=== PATIENT | female | born 1950 | race Caucasian/White ===

== ENCOUNTER 2018-09-10 07:00 | Observation (INO) | payer OTHER ==
[2018-09-09 16:12] VITALS: BP 175/105
[2018-09-09 16:20] LABS: BASOPHILS % (AUTO) 0.7 % (0.0-5.0); EOSINOPHILS % (AUTO) 1.6 % (0.0-8.0); HEMATOCRIT 44.1 % (36-48); MEAN CORPUSCULAR HEMOGLOBIN 34.6 pg (27.0-33.0); MEAN CORPUSCULAR HGB CONC 34.3 g/dL (32.0-36.0); MONOCYTES % (AUTO) 5.9 % (3.0-13.0); NEUTROPHILS % (AUTO) 74.8 % (40.0-77.0); NUCLEATED RED BLOOD CELLS 0.1 % (0.0-0.19); PLATELET COUNT (AUTO) 379 K/uL (130-400); RED BLOOD CELL COUNT(AUTO) 4.36 MIL/uL (4.00-5.50); WHITE BLOOD COUNT (AUTO) 7.7 K/uL (4.8-10.8)
[2018-09-09 16:23] LABS: APPEARANCE,URINE Clear (CLEAR); BILIRUBIN,URINE Negative (NEGATIVE); COLOR,URINE Yellow (YELLOW); GLUCOSE, URINE (UA) Negative (NEGATIVE); KETONES,URINE Negative (NEGATIVE); LEUKOCYTE ESTERASE ,URINE Negative (NEGATIVE); NITRATE,URINE Negative (NEGATIVE); OCCULT BLOOD,URINE Negative (NEGATIVE); PROTEIN,URINE Negative (NEGATIVE); UROBILINOGEN,URINE 0.2 mg/dL (0.2-1.0)
[2018-09-09 16:26] LABS: CREATININE 0.7 mg/dL (0.5-1.5); POTASSIUM 4.5 mmol/L (3.5-5.1)
[2018-09-09 16:30] LABS: INR 0.95 (0.85-1.15); PARTIAL THROMBOPLASTIN TIME 26.7 SEC (26.3-35.5)
--- NOTE | 2018-09-09 17:03 | NUR ---
DR DUMONT NOTIFIED OF ELEVATED BP 175/105 LEFT, 175/108 RIGHT, HE REVIEWED EKG, ORDERS FOR PATIENT TO NOTIFY HER PCP OK TO PROCEED WITH SURGERY
--- NOTE | 2018-09-09 17:04 | NUR ---
PATIENT INFORMED TO NOTIFY HER PRIMARY DOCTOR OF ELEVATED BP, SHE VERBALIZED HER UNDERSTANDING
[~2018-09-10] VITALS: Ht 162.6 cm; Wt 79.3 kg
[2018-09-10] VITALS (21 sets, daily range): BP systolic 118–173; BP diastolic 70–103
[~2018-09-10 07:00] MED LIST: CARI350T26 PO; CHOL4PAC21 PO; GABA-529 PO; LOSA100T58 PO; SPIR100T5 PO; TRAM50TA4 PO
[2018-09-10] MEDS: CEFAZOLIN SODIUM 1 GM VIAL IVP SCH ×3 (08:00→19:42)
[2018-09-10] MEDS ORDERED: LACTATED RINGERS 1000ML 1,000 ML IV ONE (08:11)
[2018-09-10] MEDS ORDERED: KETOROLAC TROMETHAMINE 15MG/ML ONE (08:38)
[2018-09-10] MEDS ORDERED: ACETAMINOPHEN EXTRA STRENGTH 500 MG TABLET ONE (08:38)
[2018-09-10] MEDS ORDERED: METOCLOPRAMIDE 10 MG/2 ML VIAL ONE (08:38)
[2018-09-10] MEDS ORDERED: CELECOXIB 200 MG CAP ONE (08:38)
[2018-09-10] MEDS ORDERED: OXYCODONE HCL 10 MG TAB.SR.12H PO ONE (08:38)
[2018-09-10] MEDS ORDERED: TRANEXAMIC ACID 1000MG/10ML IV ONE (09:28)
[2018-09-10] MEDS ORDERED: CEFAZOLIN SODIUM 1 GM VIAL ONE (09:28)
[2018-09-10] MEDS ORDERED: FENTANYL CITRATE PF 50 MCG/1 ML 2ML VIAL ONE ×2 (10:32→12:02)
[2018-09-10] MEDS ORDERED: MIDAZOLAM HCL 1 MG/ML 2ML VIAL ONE (10:32)
[2018-09-10] MEDS ORDERED: PROPOFOL 10 MG/ML 20ML VIAL IV ONE ×2 (10:33→12:56)
[2018-09-10] MEDS ORDERED: ROCURONIUM 10MG/1ML SYR 10 MG/ML ML ONE ×2 (10:33→11:12)
[2018-09-10] MEDS ORDERED: ONDANSETRON HCL 4 MG/2 ML VIAL ONE (10:36)
[2018-09-10] MEDS ORDERED: NEOSTIGMINE 5MG/5ML SYR IV ONE (12:42)
[2018-09-10] MEDS ORDERED: GLYCOPYRROLATE 1 MG/5 ML SYRINGE ONE (12:42)
[2018-09-10] MEDS ORDERED: CALCIUM CARBONATE 500 MG TABLET PO PRN (12:45)
[2018-09-10] MEDS ORDERED: DiphenhydrAMINE HCL 50 MG/ML VIAL IVP PRN (12:45)
[2018-09-10] MEDS ORDERED: OXYCODONE HCL 5 MG TAB PO PRN (12:45)
[2018-09-10] MEDS ORDERED: TEMAZEPAM 15 MG CAPSULE PO PRN (12:45)
[2018-09-10] MEDS ORDERED: FERROUS FUMARATE 324 MG TABLET PO PRN (12:45)
[2018-09-10] MEDS: ACETAMINOPHEN EXTRA STRENGTH 500 MG TABLET PO SCH ×2 (12:45→19:42)
[2018-09-10] MEDS ORDERED: TRAMADOL HCL 50 MG TABLET PO PRN (12:45)
[2018-09-10] MEDS ORDERED: POTASSIUM CHLORIDE 20MEQ/100ML 100 ML IV PRN (12:45)
[2018-09-10] MEDS ORDERED: ONDANSETRON HCL 4 MG/2 ML VIAL IVP PRN (12:45)
[2018-09-10] MEDS ORDERED: LIDOCAINE HCL-MPF 1% 2ML VIAL IVP PRN (12:45)
[2018-09-10] MEDS ORDERED: POTASSIUM CHLORIDE 20 MEQ ERTAB PO PRN (12:45)
[2018-09-10] MEDS ORDERED: POTASSIUM CHLORIDE 10% ELIXIR 20 MEQ/15 ML UDCUP PO PRN (12:45)
--- NOTE | 2018-09-10 13:30 | NUR ---
TRANEXAMIC ACID 1GM IVPB GIVEN IN PACU. Addendum: 09/10/18 at 1335 by NUNU SKINNER RN RN Amended: Links added.
[2018-09-10] MEDS ORDERED: MEPERIDINE-PF 25 MG/ML SYG ONE ×2 (13:36→13:44)
[2018-09-10] MEDS ORDERED: CARISOPRODOL 350 MG TABLET PO PRN (15:45)
[2018-09-10] MEDS: SODIUM CHLORIDE 0.9% 1000ML 1,000 ML IV SCH ×2 (16:05→22:24)
--- NOTE | 2018-09-10 16:05 | NUR ---
INITIAL MET W PT AND SPOUSE AT BEDSIDE, PT POST OP TKA, AAOX3, DENYING PAIN, VERY ALERT, STATES THIS IS SECOND KNEE, KNOWS WHAT TO EXPECT, HAS STD WALKER WITH TWO BACK WHEELS AND COMMODE REQUESTS [facility] AGAIN, JAIME /SIMA SIGNED AND SENT . [facility] IS HOME WHEN DR. QUIROZ RELEASES Addendum: 09/11/18 at 1710 by POWER FOWLER RN CM Amended: Links added.
[2018-09-10] MEDS ORDERED: CEFAZOLIN SODIUM 1 GM VIAL IVP SCH (17:45)
[2018-09-10] MEDS: ASPIRIN 325 MG TABLET PO SCH (19:41)
[2018-09-10] MEDS: OXYCODONE HCL 5 MG TAB PO PRN (19:41)
[2018-09-10] MEDS: CELECOXIB 200 MG CAP PO SCH (19:42)
[2018-09-10] MEDS: FAMOTIDINE 20MG TAB 20 MG TAB PO SCH (19:43)
[2018-09-10] MEDS: CHOLESTYRAMINE PACKET 4 GM PACKET PO SCH (19:43)
[2018-09-10] MEDS ORDERED: GABAPENTIN 100 MG CAPSULE PO SCH (21:00)
[2018-09-10] MEDS: KETOROLAC TROMETHAMINE 15MG/ML IV PRN (22:52)
[2018-09-11] MEDS: OXYCODONE HCL 5 MG TAB PO PRN ×4 (01:14→18:08)
[2018-09-11 03:50] VITALS: BP 127/69
[2018-09-11] MEDS: CEFAZOLIN SODIUM 1 GM VIAL IVP SCH (04:06)
[2018-09-11] MEDS: ACETAMINOPHEN EXTRA STRENGTH 500 MG TABLET PO SCH ×2 (04:06→12:39)
[2018-09-11] MEDS: KETOROLAC TROMETHAMINE 15MG/ML IV PRN ×2 (05:39→13:43)
[2018-09-11 06:05] LABS: HEMATOCRIT 33.5 % (36-48); MEAN CORPUSCULAR HEMOGLOBIN 35.2 pg (27.0-33.0); MEAN CORPUSCULAR HGB CONC 34.8 g/dL (32.0-36.0); MEAN CORPUSCULAR VOLUME 101.2 fL (79-99); PLATELET COUNT (AUTO) 271 K/uL (130-400); RED BLOOD CELL COUNT(AUTO) 3.31 MIL/uL (4.00-5.50); RED CELL DISTRIBUTION WIDTH 13.1 % (11.0-15.5); WHITE BLOOD COUNT (AUTO) 7.9 K/uL (4.8-10.8)
[2018-09-11 06:23] LABS: CREATININE 0.8 mg/dL (0.5-1.5); POTASSIUM 4.2 mmol/L (3.5-5.1)
[2018-09-11 07:30] VITALS: BP 155/87
[2018-09-11] MEDS: SODIUM CHLORIDE 0.9% 1000ML 1,000 ML IV SCH (08:24)
[2018-09-11] MEDS: CHOLESTYRAMINE PACKET 4 GM PACKET PO SCH (08:32)
[2018-09-11] MEDS: ASPIRIN 325 MG TABLET PO SCH (08:33)
[2018-09-11] MEDS: CELECOXIB 200 MG CAP PO SCH (08:33)
[2018-09-11] MEDS: FAMOTIDINE 20MG TAB 20 MG TAB PO SCH (08:34)
[2018-09-11] MEDS ORDERED: POLYETHYLENE GLYCOL 3350 17 GM POWD.PACK PO SCH (09:00)
[2018-09-11] MEDS ORDERED: SPIRONOLACTONE 25 MG TAB PO SCH (09:00)
[2018-09-11] MEDS ORDERED: GABAPENTIN 100 MG CAPSULE PO SCH (09:00)
[2018-09-11] MEDS ORDERED: LOSARTAN 100 MG TABLET PO SCH (09:00)
[2018-09-11 11:10] VITALS: BP 132/77
--- NOTE | 2018-09-11 15:00 | NUR ---
PT ACCEPTED AT [facility] Addendum: 09/11/18 at 1711 by POWER FOWLER RN CM Amended: Links added.
[2018-09-11 16:00] VITALS: BP 134/75
[2018-09-11] MEDS ORDERED: HYDR-4457 PO (18:05)
[2018-09-11] MEDS ORDERED: ASPI-1012 PO (18:05)
[2018-09-11 19:30] VITALS: BP 147/89
--- NOTE | 2018-09-11 19:55 | NUR ---
DISCHARGE DISCHARGE HOME VIA W/C ACCOMPANIED BY PATIENTS
[2018-09-13] MEDS ORDERED: BISACODYL 10 MG SUPP.RECT RC PRN (12:45)
== END 2018-09-11 19:55 | disposition home health service (06) ==
LOC: DAH 07:00 → DAHIP 07:01 → DAH 07:01 → 4AH 14:21
PROVIDERS: ADMIT Orthopaedic Surgery; ATTEND Orthopaedic Surgery
DX: M17.11 Unilateral primary osteoarthritis, right knee (principal); M19.90 Unspecified osteoarthritis, unspecified site; M85.80 Other specified disorders of bone density and structure, unspecified site; I10 Essential (primary) hypertension; E78.5 Hyperlipidemia, unspecified; Z98.41 Cataract extraction status, right eye; Z98.42 Cataract extraction status, left eye; Z90.89 Acquired absence of other organs; Z98.51 Tubal ligation status; Z82.49 Family history of ischemic heart disease and other diseases of the circulatory system; Z79.01 Long term (current) use of anticoagulants; Z79.899 Other long term (current) drug therapy
CPT/HCPCS: 27447; 36415 ×2; 80048 ×2; 81003; 85025; 85027; 85610; 85730; 87641; 88304; 88311; 93005; 96374; 96375; 96376; 97039; 97116 ×3; 97161; 97530 ×2; A4600; A4649 ×6; A4930 ×3; A6219; C1763; C1776; G0168; G0378 ×31; G8978; G8979; G8980; G8981; G8982; G8983; J0690 ×4; J1885 ×4; J2175 ×2; J2250; J2405; J2704 ×2; J2710; J2765; J3010 ×2; J3490 ×2; J7120 ×2

== ENCOUNTER → 2022-03-16 | Outpatient (CLI) | payer OTHER ==
[~2022-03-16] MED LIST changes: +ASPI-1012 PO; -CHOL4PAC21 PO; +CHOL4POW4 PO; +HYDR-4457 PO
[2022-03-16 15:31] LABS: CREATININE 0.7 mg/dL (0.5-1.5); CRP QUANTITATIVE 118.1 mg/L (0.00-9.0)
== END | disposition home or self-care (01) ==
LOC: LAB 14:07
PROVIDERS: ATTEND Internal Medicine
DX: I48.0 Paroxysmal atrial fibrillation (principal); I31.4 Cardiac tamponade; J90 Pleural effusion, not elsewhere classified
CPT/HCPCS: 36415; 80048; 83880; 86140

== ENCOUNTER → 2022-06-19 | Outpatient (CLI) | payer OTHER ==
[~2022-06-19] MED LIST changes: -LOSA100T58 PO; +LOSA100T59 PO
== END | disposition home or self-care (01) ==
LOC: SHCH 10:18
PROVIDERS: ATTEND Internal Medicine
DX: I11.9 Hypertensive heart disease without heart failure (principal); E78.5 Hyperlipidemia, unspecified; I31.4 Cardiac tamponade
CPT/HCPCS: 93306

== ENCOUNTER → 2024-06-15 | Outpatient (CLI) | payer OTHER ==
[~2024-06-15] MED LIST changes: -CARI350T26 PO; +[UNRECOGNIZED DRUG - CODE] PO
--- NOTE | 2024-06-15 13:06 | HMCIMG ---
CT CHEST W/O CONTRAST HISTORY: Pectus excavatum COMPARISON: None TECHNIQUE: Multiple sequential axial images of the chest were obtained from the thoracic inlet through upper abdomen. Patient was not given contrast through intravenous route. FINDINGS: Pectus deformity of the chest for is noted. With depression is approximately 4.1 cm and . There is no evidence of pulmonary nodule or parenchymal disease. No pleural effusion or pericardial effusion is seen. There is no evidence of pneumothorax. There are normal size mediastinal and hilar lymph nodes. The heart is not enlarged. Degenerative changes of the thoracolumbar spine are present. There is no evidence of adrenal nodule. IMPRESSION: 1. No evidence of pulmonary nodule or effusion is seen. Pectus excavatum CT was performed with one or more following dose reduction techniques: automated exposure control, adjustment of the mA and kv according to patient's size, or use of a iterative reconstruction technique.
== END | disposition home or self-care (01) ==
LOC: RAH 11:17
PROVIDERS: ATTEND Family Medicine
DX: Q67.6 Pectus excavatum (principal); R07.81 Pleurodynia; M47.815 Spondylosis without myelopathy or radiculopathy, thoracolumbar region
CPT/HCPCS: 71250